=== PATIENT | male | born 1965 | race Caucasian/White ===

== ENCOUNTER 2020-12-04 20:03 | Emergency (ER) | payer OTHER, MEDICARE ==
[~2020-12-04] VITALS: Ht 175.3 cm; Wt 131.8 kg
[2020-12-04 21:04] LABS: BASOPHILS # (AUTO) 0.1 X10'3 (0-0.2); BASOPHILS % (AUTO) 0.6 % (0-1); EOSINOPHILS # (AUTO) 0.6 X10'3 (0-0.9); EOSINOPHILS % (AUTO) 4.6 % (0-6); HEMATOCRIT 35.7 % (42.0-52.0); HEMOGLOBIN 11.5 g/dl (14.0-17.9); LYMPHOCYTES # (AUTO) 1.5 X10'3 (1.1-4.8); LYMPHOCYTES % (AUTO) 11.7 % (21-51); MEAN CORPUSCULAR HEMOGLOBIN 26.5 PG (27.0-31.0); MEAN CORPUSCULAR HGB CONC 32.2 g/dL (33.0-36.5); MEAN CORPUSCULAR VOLUME 82.2 FL (78-98); MEAN PLATELET VOLUME 8.1 FL (7.4-10.4); NEUTROPHILS # (AUTO) 9.8 X10'3 (1.8-7.7); NEUTROPHILS % (AUTO) 75.1 % (42-75); PLATELET COUNT 529 X10'3 (140-440); RED BLOOD COUNT 4.34 X10'6 (4.70-6.10); RED CELL DISTRIBUTION WIDTH 18.4 % (11.5-14.5); WHITE BLOOD COUNT 13.1 X10'3 (4.5-11.0)
[2020-12-04 21:13] LABS: D-DIMER 1.96 MG/L FEU (0-0.50)
[2020-12-04 21:20] LABS: ALANINE AMINOTRANSFERASE 45 U/L (12-78); ALBUMIN 3.2 G/DL (3.4-5.0); ALBUMIN/GLOBULIN RATIO 0.5 (1.1-1.5); ALKALINE PHOSPHATASE 139 IU/L (46-116); ANION GAP 10 (8-16); ASPARTATE AMINO TRANSFERASE 36 U/L (10-37); BILIRUBIN,TOTAL 0.4 MG/DL (0.1-1.0); BLOOD UREA NITROGEN 30 MG/DL (7-18); BUN/CREATININE RATIO 23.4 (5.4-32.0); CALCIUM 9.3 MG/DL (8.5-10.1); CHLORIDE 98 MMOL/L (99-107); CREATININE 1.28 MG/DL (0.60-1.10); GLUCOSE 137 MG/DL (70-104); POTASSIUM 4.5 MMOL/L (3.5-5.1); SODIUM 140 MMOL/L (135-145); TOTAL CARBON DIOXIDE 31.7 MMOL/L (24-32); TOTAL PROTEIN 9.4 G/DL (6.4-8.2); eGFR 58 ML/MIN
[2020-12-05 00:30] VITALS: BP 157/102
== END 2020-12-05 00:33 | disposition home or self-care (01) ==
LOC: ER 20:04
DX: R06.02 Shortness of breath (principal); M10.9 Gout, unspecified; Z90.49 Acquired absence of other specified parts of digestive tract; Z79.82 Long term (current) use of aspirin
CPT/HCPCS: 36415; 71045; 71275; 80053; 83880; 84145; 84484; 85025; 85379; 93005; 99285

== ENCOUNTER 2020-12-11 23:32 | Emergency (ER) | payer OTHER, MEDICARE ==
[~2020-12-11] VITALS: Ht 175.3 cm; Wt 131.8 kg
[2020-12-11 23:37] VITALS: BP 150/91
[2020-12-12 02:12] LABS: CLARITY,URINE CLEAR (Clear); COLOR,URINE YELLOW (Yellow); GLUCOSE, URINE NEGATIVE (Neg); KETONES,URINE NEGATIVE (Neg); LEUKOCYTE ESTERASE ,URINE NEGATIVE (Neg); NITRITES, URINE NEGATIVE (Neg); OCCULT BLOOD,URINE NEGATIVE (Neg); PROTEIN,URINE 100 mg/dl (Neg); UROBILINOGEN,URINE 0.2 E.U/dL (0.2-1.0)
[2020-12-12 02:25] LABS: UA COLLECTION TYPE CLN CATCH MIDSTREAM
[2020-12-12 02:26] LABS: BACTERIA,URINE FEW /HPF (Neg); HYALINE CASTS 0-3 /LPF (NEGATIVE); MUCUS STRANDS FEW /LPF (Neg); RBC,URINE NONE SEEN /HPF (0-2); SQUAMOUS EPITHELIAL CELL,UR FEW /LPF (FEW); WBC,URINE 0-4 /HPF (0-4)
== END 2020-12-12 02:54 | disposition left against medical advice (07) ==
LOC: ER 23:33
DX: R50.9 Fever, unspecified (principal); Z53.21 Procedure and treatment not carried out due to patient leaving prior to being seen by health care provider
CPT/HCPCS: 81001

== ENCOUNTER 2024-12-07 19:13 | Inpatient (IN) | payer OTHER, BC ==
[~2024-12-07] VITALS: Ht 175.3 cm; Wt 145.4 kg
[2024-12-07 19:34] LABS: MEAN PLATELET VOLUME 7.6 FL (7.4-10.4); RED CELL DISTRIBUTION WIDTH 16.3 % (11.5-14.5)
[2024-12-07 20:16] LABS: CREATININE 0.94 MG/DL (0.60-1.10); TOTAL CARBON DIOXIDE 29.4 MMOL/L (24-32); eGFR 82 ML/MIN
[2024-12-07 20:22] LABS: PRO BRAIN NATRIURETIC PEPTIDE 67 PG/ML (0-125)
--- NOTE | 2024-12-07 20:47 | RADIOLOGY REPORT ---
EXAM: DI CHEST,SINGLE VIEW CLINICAL HISTORY: CP TECHNIQUE: Single PA view of the chest WID: COMPARISON: CHEST,SINGLE VIEW on DOS: 12/04/20 FINDINGS: Lines and tubes: Right IJ central venous catheter with the tip projecting over the low SVC. Chest: The heart size and pulmonary vasculature is within normal limits. No pleural effusion, pneumothorax, or consolidation. The osseous structures are grossly intact. IMPRESSION: No acute cardiopulmonary abnormality.
[2024-12-07 21:05] LABS: LEUKOCYTE ESTERASE ,URINE NEGATIVE (Neg); NITRITES, URINE NEGATIVE (Neg); OCCULT BLOOD,URINE TRACE-INTACT (Neg)
[2024-12-07 21:09] LABS: UA COLLECTION TYPE NON-SPECIFIED
[2024-12-07 21:11] LABS: MUCUS STRANDS MANY /LPF (Neg); SQUAMOUS EPITHELIAL CELL,UR FEW /LPF (FEW)
--- NOTE | 2024-12-07 21:32 | RADIOLOGY REPORT ---
Exam: DI ABDOMEN,SINGLE VIEW(KUB) Indication: ABD PAIN Comparison: None Technique: 4 radiographic views of the abdomen. Findings: The visualized portions of the lung bases are clear. Moderate gaseous distention of the stomach and segments of bowel predominantly within the left lower quadrant. No definite evidence of obstruction. There is no definite evidence for pneumoperitoneum. No abnormal calcifications noted. Impression: 1. Limited bowel gas pattern within the stomach and segments of bowel within the left lower quadrant. No definite evidence of obstruction.
--- NOTE | 2024-12-07 22:39 | Physician Documentation ---
History of Present Illness Chief Complaint: Abdominal Pain Stated Complaint: "I THINK I HAVE A BOWEL BLOCKAGE" Time Seen by MD: 22:04 Primary Medical Doctor: agatha ([facility]) Source: patient Mode of Arrival: POV, Ambulatory Exam Limitations: no limitations HPI 59-year-old male presents to the ED with a complaint of abdominal pain since noon today. Says there are no alleviating factors to bone pain even when leaned down. Patient has a long history of abdominal surgeries including bowel resection and a colostomy. States he has not been able to eat since this morning. Reports that his pain is in both the upper left and upper right quadrants. Patient thinks he has a bowel blockage of his because his symptoms are similar to with the air blockage at [facility]. Patient states he has stopped passing gas Day of Onset: Dec 07, 2024 Medication Reconciliation Allergies: Coded Allergies: No Known Allergies (Unverified , 12/04/20) Scheduled Allopurinol (Allopurinol), 4 TAB PO DAILY, (Reported) Amlodipine Besylate (Amlodipine Besylate), 1 TAB PO DAILY Amlodipine* (Norvasc*), 4 TAB PO DAILY, (Reported) Clonidine HCl (Clonidine HCl), 1 TAB PO Q8H Gabapentin (Gabapentin), 1 CAP PO DAILY, (Reported) Hydralazine Hcl* (Apresoline*), 25 MG PO TID, (Reported) Labetalol Hcl (Labetalol Hcl), 100 MG PO BID Losartan Potassium (Losartan Potassium), 100 MG PO DAILY Losartan Potassium* (Cozaar*), 4 TAB PO DAILY, (Reported) Scheduled PRN Acetaminophen (Tylenol), 1 TAB PO Q4HPRN PRN for pain or fever, (Reported) Prednisone* (Prednisone*), 4 TAB PO PRN PRN for gout, (Reported) Discontinued Medications Clonidine HCl (Clonidine HCl), 1 TAB PO BID, (Reported) Past Medical History Past Medical History: *GI/HEPATOBILIARY*, Bowel Obstruction, Hernia Past Surgical History: noncontributory Smoking Status: Unknown if ever smoked Alcohol Use: None Drug Use: none Lives In: Home Review of Systems All Other Systems at this time: Reviewed and Negative ROS As stated above in the HPI, otherwise all systems are reviewed and negative. Physical Exam Vital Signs: Temperature: 98.6, Source: Oral, Heart Rate: 83, Respiratory Rate: 16, BP: 177/86, Pulse Oximetry: 97 Oxygen Flow Rate: 0 Physical Exam General: Alert, no apparent distress Respiratory: Lungs clear, no respiratory distress. Cardiovascular: Regular rate and rhythm, no murmurs. Gastrointestinal: Soft, tender to light palpation upper quadrants Neurologic: Oriented x4. Skin: large surgical scars lower abdomen Progress Progress Note [phone]: Paged hospitalist [phone]: Case discussed with hospitalist who agrees to evaluate patient for admission. Results/Orders Reviewed/noted all lab results: Yes Results/Orders Orders - DELPHINE ABRAHAM [employer] Ct Abdomen Pelvis (12/07/24 22:31) Vital Signs 12/07/24 12/07/24 12/07/24 19:15 20:21 20:40 Temp 98.6 98.6 Pulse 81 83 Resp 16 16 16 B/P (MAP) 208/111 177/86 (116) Pulse Ox 98 97 O2 Flow Rate 0 0 Laboratory Tests Test 12/07/24 19:25 12/07/24 20:51 12/07/24 21:16 White Blood Count 9.2 Red Blood Count 5.36 Hemoglobin 14.2 Hematocrit 42.9 Mean Corpuscular Volume 80.0 Mean Corpuscular Hemoglobin 26.5 L Mean Corpuscular Hemoglobin Concent 33.1 Red Cell Distribution Width 16.3 H Platelet Count 274 Mean Platelet Volume 7.6 Neutrophils (%) (Auto) 67.2 Lymphocytes (%) (Auto) 18.2 L Monocytes (%) (Auto) 5.6 Eosinophils (%) (Auto) 8.1 H Basophils (%) (Auto) 0.9 Neutrophils # (Auto) 6.2 Lymphocytes # (Auto) 1.7 Monocytes # (Auto) 0.5 Eosinophils # (Auto) 0.7 Basophils # (Auto) 0.1 CBC Comment Sodium Level 138 Potassium Level 3.9 Chloride Level 102 Carbon Dioxide Level 29.4 Anion Gap 7 L Blood Urea Nitrogen 19 H Creatinine 0.94 Estimated GFR/1.73 m2 82 BUN/Creatinine Ratio 20.2 H Glucose Level 126 H Calcium Level 8.7 Total Bilirubin 0.9 Aspartate Amino Transf (AST/SGOT) 134 H Alanine Aminotransferase (ALT/SGPT) 73 Alkaline Phosphatase 141 H Troponin I High Sensitivity 10 11 Pro-B-Type Natriuretic Peptide 67 Total Protein 7.7 Albumin 3.4 Globulin 4.3 Albumin/Globulin Ratio 0.8 L Lipase 45 Chemistry Comments Urine Specimen Description Non-specified Urine Color Naomi Urine Clarity Clear Urine pH 6.0 Urine Specific Quincy >=1.030 Urine Protein >=300 H Urine Glucose (UA) Negative Urine Ketones Negative Urine Occult Blood Trace-intact Urine Nitrite Negative Urine Bilirubin Small Urine Urobilinogen 1.0 Urine Leukocyte Esterase Negative Urine RBC 0-2 Urine WBC 0-4 Urine Squamous Epithelial Cells Few Urine Bacteria None seen Urine Mucus Many Urine Culture Indicated Not ind Volume Urine Centrifuged 10 ml Urine Comment Troponin I High Sens Percent Delta 10 Troponin I Hi Sens Absolute Change 1 Re-Evaluation Re-Evaluation : Re-Evaluation: Improved Progress Patient was seen and examined. Patient was initially seen by another provider who is stabilize the patient patient was ready for admission. Patient was then presented to the hospitalist service who kindly agreed to admit the patient for further workup and care. EKG/XRAY/CT/US/VASC/MRI Chest X-Ray : Interpreted By: radiologist Additional Comments [address] [address] DIAGNOSTIC RADIOLOGY Patient: LUIS CARLOS DIEGO Medical Record: [id number] [facility] : 1965, Age: 59 Sex: Male Location: ER Patient Status: [facility] ER Service Date/Time: 12/07/241933 Ordering Physician: SARAH HOLLIS MD Exam: CHEST,SINGLE VIEW EXAM: DI CHEST,SINGLE VIEW CLINICAL HISTORY: CP TECHNIQUE: Single PA view of the chest WID: COMPARISON: CHEST,SINGLE VIEW on DOS: 12/04/20 FINDINGS: Lines and tubes: Right IJ central venous catheter with the tip projecting over the low SVC. Chest: The heart size and pulmonary vasculature is within normal limits. No pleural effusion, pneumothorax, or consolidation. The osseous structures are grossly intact. IMPRESSION: No acute cardiopulmonary abnormality. Electronically Signed by:KRISS HAMMER MD Date & Time: 12/07/242044 Dictated by: KRISS HAMMER MD Dictation date and time: 12/07/242044 Primary Care Provider: NO PRIMARY CARE PROVIDER cc: SARAH HOLLIS MD ~ Abdominal X-Ray : Interpreted By: radiologist Additional Comment [address] [address] DIAGNOSTIC RADIOLOGY Patient: LUIS CARLOS DIEGO Medical Record: [id number] [facility] : 1965, Age: 59 Sex: Male Location: ER Patient Status: [facility] ER Service Date/Time: 12/07/242033 Ordering Physician: SARAH HOLLIS MD Exam: ABDOMEN,SINGLE VIEW(KUB) Exam: DI ABDOMEN,SINGLE VIEW(KUB) Indication: ABD PAIN Comparison: None Technique: 4 radiographic views of the abdomen. Findings: The visualized portions of the lung bases are clear. Moderate gaseous distention of the stomach and segments of bowel predominantly within the left lower quadrant. No definite evidence of obstruction. There is no definite evidence for pneumoperitoneum. No abnormal calcifications noted. Impression: 1. Limited bowel gas pattern within the stomach and segments of bowel within the left lower quadrant. No definite evidence of obstruction. Electronically Signed by:ARCADIO CALDERON MD Date & Time: 12/07/242129 Dictated by: ARCADIO CALDERON MD Dictation date and time: 12/07/242027 Primary Care Provider: NO PRIMARY CARE PROVIDER cc: SARAH HOLLIS MD ~ CT : Interpreted By: radiologist CT: abdomen/pelvis With Contrast?: No Impression [address] [address] CAT SCAN Patient: LUIS CARLOS DIEGO Medical Record: [id number] [facility] : 1965, Age: 59 Sex: Male Location: ER Patient Status: [facility] ER Service Date/Time: 12/07/242308 Ordering Physician: DELPHINE ABRAHAM [employer] Exam: CT ABDOMEN PELVIS Exam: CT CT ABDOMEN PELVIS History: ULQ and URQ pain Comparison Study: None TECHNIQUE: Multidetector CT of the abdomen and pelvis was performed from lung bases to pubic symphysis. Imaging was performed without IV contrast. Axial, coronal, and sagittal multiplanar reformats were obtained from the axial data set by the technologist. RADIATION DOSE: CTDI vol 34.78 mGy. DLP 2291.12 mGy.cm Findings: Limited evaluation of the solid organs in the absence of IV contrast. Liver: Unremarkable. Spleen: Small splenule. Pancreas: Unremarkable. Gallbladder: The gallbladder is distended. No biliary ductal dilatation. Adrenals: Unremarkable Kidneys: Left renal cyst. No hydronephrosis. Pelvic Viscera: Unremarkable. Vasculature: Mild atherosclerotic aortoiliac calcifications. Retroperitoneum: Unremarkable. Bowel: Multiple ventral abdominal wall hernias containing bowel without evidence of obstruction. Musculoskeletal: Unremarkable. Soft tissues: Unremarkable Lungs: Bibasilar atelectasis/scarring. Impression: 1. Distended appearance of the gallbladder. Right upper quadrant ultrasound may be beneficial in further evaluation as clinically indicated. 2. Incidental findings as detailed. Electronically Signed by:JONN VENTURA MD Date & Time: 12/07/242354 Dictated by: JONN VENTURA MD Dictation date and time: 12/07/242354 Primary Care Provider: NO PRIMARY CARE PROVIDER cc: JARAD,DELPHINE H [employer] ~ Medical Decision Making Differential Dx:Considerations: Include: AAA, Angina/LA, Aortic dissection, Appendicitis, Bowel obstruction, Cholangitis, Cholelithasis, Constipation, Diverticular disease, Esophageal rupture, Esophagitis, Gastritis/PUD, Gastroenteritis, GI hemorrhage, Hernia, Hepatitis, Inflammatory BD, Ischemic bowel, Pancreatitis, Porphyria, Testicular torsion, Trauma, intraabdominal, Urinary obstruction, Urinary tract infection, Urolithiasis, Other Departure Time of Disposition: 02:45 Disposition: 09 ADMITTED INPATIENT Admitted to Inpatient Unit: yes, to hospitalist Admission Level of Care: Med/Surg with Tele Impression: Primary Impression: Intractable abdominal pain Condition: Guarded Referrals: NO PRIMARY CARE PROVIDER (PCP) Prescriptions Losartan Potassium (Losartan Potassium) 50 Mg Tablet 100 MG PO DAILY for 30 Days, #60 TAB Prov: KEVIN LOWE, [facility] 12/10/24 Amlodipine Besylate (Amlodipine Besylate) 10 Mg Tablet 1 TAB PO DAILY for 30 Days, #30 TAB 0 Refills Prov: KEVIN LOWE RES 12/10/24 Clonidine HCl (Clonidine HCl) 0.2 Mg Tablet 1 TAB PO Q8H for 30 Days, #90 TAB 0 Refills Prov: KEVIN LOWE, [facility] 12/10/24 Labetalol Hcl (Labetalol Hcl) 100 Mg Tablet 100 MG PO BID for 30 Days, #60 TAB Prov: KEVIN LOWE, [facility] 12/10/24 Signature Scribe Signature: Scribed for Sarah Hollis MD by Alaina Bailey 12/08/24 02:46 Attestation: Scribed for Sarah Hollis MD by Dlephine Kebede NP . 12/08/24 14:09 DELPHINE ABRAHAM NP Dec 07, 2024 22:39 SARAH HOLLIS MD Dec 08, 2024 02:46
--- NOTE | 2024-12-07 23:58 | RADIOLOGY REPORT ---
Exam: CT CT ABDOMEN PELVIS History: ULQ and URQ pain Comparison Study: None TECHNIQUE: Multidetector CT of the abdomen and pelvis was performed from lung bases to pubic symphysi s. Imaging was performed without IV contrast. Axial, coronal, and sagittal multiplanar reformats were obtained from the axial data set by the technologist. RADIATION DOSE: CTDI vol 34.78 mGy. DLP 2291.12 mGy.cm Findings: Limited evaluation of the solid organs in the absence of IV contrast. Liver: Unremarkable. Spleen: Small splenule. Pancreas: Unremarkable. Gallbladder: The gallbladder is distended. No biliary ductal dilatation. Adrenals: Unremarkable Kidneys: Left renal cyst. No hydronephrosis. Pelvic Viscera: Unremarkable. Vasculature: Mild atherosclerotic aortoiliac calcifications. Retroperitoneum: Unremarkable. Bowel: Multiple ventral abdominal wall hernias containing bowel without evidence of obstruction. Musculoskeletal: Unremarkable. Soft tissues: Unremarkable Lungs: Bibasilar atelectasis/scarring. Impression: 1. Distended appearance of the gallbladder. Right upper quadrant ultrasound may be beneficial in fur ther evaluation as clinically indicated. 2. Incidental findings as detailed.
[2024-12-08] VITALS (8 sets, daily range): BP systolic 162–199; BP diastolic 80–109; PULSE 72–82; RESP 16–22; TEMP 96.9–98.4; O2SAT 92–98
[2024-12-08] MEDS ORDERED: AMLO2.5T2 PO (01:20)
[2024-12-08] MEDS ORDERED: HYDR25TA90 PO (01:21)
[2024-12-08] MEDS ORDERED: PRED5TAB PO (01:30)
[2024-12-08] MEDS ORDERED: ALLO100T15 PO (01:30)
[2024-12-08] MEDS ORDERED: GABA-530 PO (01:30)
[2024-12-08] MEDS ORDERED: LOSA-415 PO (01:30)
[2024-12-08] MEDS ORDERED: CLON0.1T2 PO (01:32)
[2024-12-08] MEDS: oxyCODONE SR 10mg (sust. release) tab PO ONE (02:35)
[2024-12-08] MEDS: normal saline 1000ML IV soln IVB ONE (02:44)
[2024-12-08] MEDS ORDERED: ondansetron/PF 4mg/2ml inj IV PRN (03:25)
[2024-12-08] MEDS ORDERED: docusate sod 100mg capsule PO PRN (03:25)
[2024-12-08] MEDS ORDERED: magnesium hydroxide 30ml (MOM) UD suspension PO PRN (03:25)
[2024-12-08] MEDS ORDERED: magnesium sulf-water 2g/50mL 50 ML IV PRN (03:25)
[2024-12-08] MEDS ORDERED: mag hydrox/Alum hydrox/simeth 30ml oral suspension PO PRN (03:25)
[2024-12-08] MEDS ORDERED: potassium Cl 20 mEq SR tablet PO PRN ×2 (03:25)
[2024-12-08] MEDS ORDERED: magnesium sulf-water 4G/100mL 100 ML IV PRN (03:25)
[2024-12-08] MEDS ORDERED: magnesium Cl slow-release 64mg tablet PO PRN (03:25)
[2024-12-08] MEDS ORDERED: potassium Cl 40MEQ/1/2NS 520ml 520 ML IV PRN (03:25)
--- NOTE | 2024-12-08 03:43 | HISTORY AND PHYSICAL-Residence ---
History & Physical Providers to CC Resident Creating Document: JAMES LEMON, RES ~ History of Present Illness Primary Medical Doctor: agatha ([facility]) Reason for Admit\Complaint: Abd pain History of Present Illness A 59 years old male with a past medical history of multiple abdominal surgeries for colectomy and reversed colostomy done by Dr. Simpson, hx of ventriculoperitoneal shunt, Class 4 obesity with EDMUNDO on CPAP, HTN presented to the ER for having abd pain across the belly associated with no BM and flatus pass since yesterday morning. He stated that he was having sharp stabbing pain across his belly button persistently since yesterday morning. It was associated with no flatus pass, bowel movement for which he usually has 2-3 times per day, and nausea but not vomiting. So, he stopped eating since yesterday 7 am but could manage to pass down the liquid. He denied any shifting and radiating pain. He had the similar pain last 2 years ago when he had a bowel obstruction. He also noticed for the low grade fever at home but denied for chills and rigor. He had multiple surgeries for his diverticulitis and bleeding internally which was corrected with sigmoid colectomy and reversed colostomy by Dr Simpson. He denied any unintentionally dramatic weight loss in the short period. In ER, his CT abd did not show any signs of Bowel obstruction but the gall bladder was distended. The concern for admission was to explore more for the gall bladder pathology with mildly elevated Lactic acid along with the abd pain. Allergies: Coded Allergies: No Known Allergies (Unverified , 12/04/20) Home Medications Home Medications Active Reported Clonidine HCl 0.1 Mg Tablet 1 Tab PO BID 30 Days Gabapentin 100 Mg Capsule 1 Cap PO DAILY 30 Days Allopurinol 100 Mg Tablet 4 Tab PO DAILY Prednisone* (Prednisone) 5 Mg Tablet 4 Tab PO PRN PRN 30 Days Cozaar* (Losartan Potassium) 25 Mg Tablet 4 Tab PO DAILY 30 Days Apresoline* (Hydralazine HCl) 25 Mg Tablet 25 Mg PO TID Norvasc* (Amlodipine Besylate) 2.5 Mg Tablet 4 Tab PO DAILY 30 Days Past Medical History Past Medical History -hx of ventriculoperitoneal shunt -Class 4 obesity with EDMUNDO on CPAP -HTN Past Surgical History Surgical History Comment multiple abdominal surgeries for colectomy and reversed colostomy done by Dr. Simpson Past Social History Social History Comment living with his spouce and fully ambulatory Quit smoking while he was 17 years old, the last time he was drinking alcohol was six years ago, and was a ex heavy drinker Alcohol Use: None Drug Use: None Lives In: Home ROS All Other Systems: Reviewed and Negative ROS ROS were reviewed WNL except for the above mentioned in HPI Exam Vitals: Vital Signs Date Time Temp Pulse Resp B/P (MAP) Pulse Ox O2 Delivery O2 Flow Rate FiO2 12/08/24 02:46 70 16 182/95 (124) 99 12/08/24 02:22 0 12/07/24 20:21 98.6 General: General: Generally obese, Well alert, well oriented, not confused, not agitated, not in acute distress, well cooperated during the physical. HEENT: HEENT: Conjunctive are pink, sclerae clear, no icterus, pupil is equal in both sides, reactive to light, no ear discharge, no pharyngeal erythema or an edema, mouth and lips are moist. Neck: Neck: Supple, no JVD, no lymphadenopathy and thyromegaly. Chest: Lungs:Equal air entry on both lungs, no additional sounds Cardiovascular: Heart: S1-S2 regular sinus rhythm and, regular rate, no gallops, no rubs, no murmurs Abdomen: Abdomen: No visible peristalsis, visible midline surgical scars with two profusely enlarged left lower swelling and right lower swelling over the obese abd, hyperactive Bowel sounds present on auscultation on the right lower but slightly reduced on the left lower compared to the right, soft, nontender, no guarding, no rigidity. No Rodriguez sign positive Extremities: Extremities: No obvious deformities, no pitting edema bilaterally, capillary refill intact, able to wiggle toes both sides, peripheral pulsations are intact on both sides Central Nervous System: [employer]: No focal neurological deficits, no motor and sensory weakness in all 4 extremities, could move all 4 extremities Musculoskeletal: Musculoskeletal: No joint swelling, deformities, inflammations, and no scoliosis and back tenderness Skin: Skin: No active skin lesions and rashes Diagnostic Data Last Recorded Lab Results: 12/07/24192412/07/241924 Advance Care Planning Advanced Care plannin - 30 Minutes Additional Plan A 59 years old male with a past medical history of multiple abdominal surgeries for colectomy and reversed colostomy done by Dr. Simpson, hx of ventriculoperitoneal shunt, Class 4 obesity with EDMUNDO on CPAP, presented to the ER for having abd pain across the belly associated with no BM and flatus pass since yesterday morning. # Acute abdominal pain # Distended Gall bladder # Suspected bowel obstruction - KUB abd xray showed Limited bowel gas pattern within the stomach and segments of bowel within the left lower quadrant. No definite evidence of obstruction. -CT AP w/o IV Contrast showed Gallbladder: The gallbladder is distended. No biliary ductal dilatation. Bowel: Multiple ventral abdominal wall hernias containing bowel without evidence of obstruction. -ordered USG abd and HIDA scan for any hepatobiliary pathology -consult with general surgery for further management in the a.m. -NO NPO and NGT orders since no radiologic evidence of bowel obstruction -serum potassium within normal -control nausea with ondansetron, pain with Tylenol and IV Dilaudid as needed # EDMUNDO on CPAP # Class 4 obesity, BMI 47.4 # HTN # hyperglycemia -continue CPAP daily -weight losing plan outpatient setting -control blood pressure with amlodipine, losartan, clonidine -pending lipid panel, HGB A1c, TSH # Gouty arthritis # chronic pain -continue allopurinol 100 mg daily, prednisone 5 mg four tablets daily as needed for gouty arthritis, cautiously use prednisone in the presence of hypertension -pain control CODE STATUS: DNR DNI, patient confirmed DVT prophylaxis: Sc heparin 5000 units b.i.d. Analgesia/sedation: Tylenol/IV Dilaudid as needed Lines/tubes: PIV Prognosis: Guarded Disposition: Continue medical management, surgical consultation in the a.m., F/up W/ ultrasound abdomen and HIDA scan, continue IV fluid, pain control, rapid lactic acid, PT eval and DC plan. Resident MD attestation: Patient was seen, examined and discussed with attending MD, Dr. Angel LEMON MD Internal Medicine Resident, PGY3 [facility] Date of Service: Dec 08, 2024 Billing Provider: DAVID PATRICK MD,JAMES, RES Dec 08, 2024 03:43 DAVID PATRICK MD Dec 08, 2024 15:42
[2024-12-08] MEDS: ketorolac trometh 15mg/ml vial 15 MG/ML ML IV ONE (03:50)
[2024-12-08] MEDS: ringers solution, lacted 1,000 ML IV SCH (03:51)
[2024-12-08] MEDS: HYDROmorphone inj. 0.5 MG/0.5 ML DISP.SYRIN IV PRN (06:01)
--- NOTE | 2024-12-08 06:30 | ELECTROCARDIOGRAPH REPORT ---
[facility] Test Date: 2024-12-07 Test Time: 19:26:48 Pat Name: LUIS CARLOS DIEGO Department: EMERGENCY ROOM Room: ORTHO 4023 A Gender: M [employer] Operator: : 1965 Requested By: SARAH HOLLIS Order Number: [id number] Reading MD: Dr. Sarah Hollis Measurements Intervals [place] Rate: 80 P: 19 TX: 170 QRS: -9 QRSD: 94 T: 50 QT: 365 QTc: 421 Interpretive Statements Sinus rhythm Baseline wander in lead(s) V2 Electronically Signed On 12-08-2024 18:33:[address] Sarah Hollis Please click the below link to view image of tracing.
[2024-12-08 06:40] LABS: APTT 30 SECONDS (22-32); INR 1.1 INR
[2024-12-08 07:01] LABS: CHOL/HDL RATIO 3.1 (0.00-4.99); LDL CHOLESTEROL 99 MG/DL (50-100); PRO BRAIN NATRIURETIC PEPTIDE 98 PG/ML (0-125)
[2024-12-08 07:27] LABS: MEAN PLATELET VOLUME 8.3 FL (7.4-10.4); RED CELL DISTRIBUTION WIDTH 15.8 % (11.5-14.5)
[2024-12-08 07:32] LABS: CREATININE 1.06 MG/DL (0.60-1.10); TOTAL CARBON DIOXIDE 22.5 MMOL/L (24-32); eCRCL 74 ML/MIN; eGFR 71 ML/MIN
[2024-12-08] MEDS ORDERED: ALLOPURINOL PO SCH (08:00)
[2024-12-08] MEDS: K and/or MAG REPLACEMENT MC SCH (08:00)
[2024-12-08] MEDS: heparin, porcine 5000 units/ml vial SQ SCH (09:08)
[2024-12-08] MEDS: hydrALAZINE 20mg/ml inj. IV PRN (10:24)
--- NOTE | 2024-12-08 11:06 | RADIOLOGY REPORT ---
INDICATION: Distended GB with the Acute abd, slightly elevated AST TECHNIQUE: Multiple real-time sonographic images of the abdomen were obtained. COMPARISON: None FINDINGS: The liver is homogenous in echogenicity. No intrahepatic biliary ductal dilatation is not ed. The gallbladder wall measures 0.2 cm and is unremarkable. Gallbladder sludge. The common duct measur es 0.7 cm and is unremarkable. No pericholecystic fluid is noted. The right kidney measures 11cm. No hydronephrosis. The pancreas is not well visualized due to obscuration from bowel gas. The visualized portions of the IVC and aorta are grossly unremarkable. IMPRESSION: Gallbladder sludge.
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
[2024-12-08] MEDS: SINCALIDE IV ONE (15:43)
[2024-12-08] MEDS: NORMAL SALINE IV ONE (15:43)
--- NOTE | 2024-12-08 17:00 | RADIOLOGY REPORT ---
HEPATOBILIARY SCINTIGRAPHY (HIDA SCAN) WITH EJECTION FRACTION REASON FOR EXAM: Distended GB with no CBD dilation. RHC pain elevated lactic acid. History of colecto my and PART TIME RECEPTIONIST shunt. COMPARISON: None TECHNIQUE: 5.9 mCi of technetium 99m Choletec were injected intravenously and hepatobiliary scan was performed. This was followed by slow injection of 2.9 mcg CCK. Dynamic cine loop and static images we re reviewed on a workstation. FINDINGS: There is homogenous uptake of radiotracer within the liver on the immediate flow images. There is visualization of the biliary tree within 15 minutes of the study and there is progressive pa ssage of radiotracer into the small bowel as the study progresses. There is no radiotracer extravasa tion. The gallbladder is visualized within 20 minutes of the study. The patient experienced mild abdominal cramping with CCK infusion. Gallbladder ejection fraction is estimated at 3%, severely decreased. IMPRESSION: Severely decreased gallbladder ejection fraction. The most common etiologies in the differential diag nosis include chronic acalculous cholecystitis and biliary dyskinesia.
--- NOTE | 2024-12-08 22:58 | ELECTROCARDIOGRAPH REPORT ---
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 DEANGELO Clarke Measurements Intervals [place] Rate: 80 P: 31 MT: 187 QRS: 22 QRSD: 103 T: 54 QT: 378 QTc: 436 Interpretive Statements Sinus rhythm Electronically Signed On 12-09-2024 19:16:[address] DEANGELO Clarke Please click the below link to view image of tracing.
[2024-12-09] VITALS (11 sets, daily range): BP systolic 123–199; BP diastolic 63–101; PULSE 64–78; RESP 16–19; TEMP 97.9–98.7; O2SAT 94–97
[2024-12-09 04:58] LABS: MEAN PLATELET VOLUME 7.8 FL (7.4-10.4); RED CELL DISTRIBUTION WIDTH 15.9 % (11.5-14.5)
[2024-12-09 05:17] LABS: CREATININE 0.72 MG/DL (0.60-1.10); TOTAL CARBON DIOXIDE 26.9 MMOL/L (24-32); eCRCL 109 ML/MIN; eGFR > 90 ML/MIN
--- NOTE | 2024-12-09 07:49 | ELECTROCARDIOGRAPH REPORT ---
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 DEANGELO Clarke Measurements Intervals [place] Rate: 82 P: 11 [place]: 198 QRS: 10 QRSD: 99 T: 47 QT: 387 QTc: 452 Interpretive Statements Sinus rhythm Ventricular premature complex Inferior infarct, old Electronically Signed On 12-09-2024 19:16:[address] DEANGELO Clarke Please click the below link to view image of tracing.
--- NOTE | 2024-12-09 08:16 | RADIOLOGY REPORT ---
CHEST RADIOGRAPH Indication: CHEST PAIN/SOB Technique: Single frontal view of the chest was obtained Comparison: DI CHEST,SINGLE VIEW on DOS: 12/07/24, CTA CHEST on DOS: 12/04/20, CHEST,SINGLE VIEW on DOS : 12/04/20 FINDINGS: Lines and Tubes: Right CVC tip in SVC. Lungs: No focal consolidation. Pleura: No effusion. No pneumothorax. Cardiomediastinal contours: Unremarkable Bones: No acute osseous abnormality. IMPRESSION: No acute cardiopulmonary disease.
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
--- NOTE | 2024-12-09 20:12 | PROGRESS NOTE ---
Progress Note Dictate Providers to CC ~ Progress Note: I was asked to see the patient for a massive midline hernia and abdominal pain I reviewed the CT scan and spoke with the patient He is not showing any clinical or radiographic evidence of obstruction or compromised bowel Laboratory studies are all within normal limits Recommendations: -with no strangulation or obstruction, advancing diet and focusing on pain management and supportive care is indicated. Consider temporary method such as oral analgesics such as acetaminophen or NSAIDs, localized packs and avoiding activities that exacerbate pain. -patient states he has a surgeon that he has spoken to at [facility] who is willing to fix his hernia and I believe this is the best option forward In the interim, optimizing comorbidities including obesity would prove beneficial Patient has loss of domain and a complex abdominal wall. These complex hernia repairs may incorporate preoperative progressive pneumo peritoneum, botulinum toxin injections, or staged component separation to expand the abdominal domain before surgery. These repairs should be undertaken electively by teams familiar with modern, multi technique approaches such as component separation in complicated abdominal cases. Emergency repair outside specialist environment is discouraged due to the high morbidity and risk of compartment syndrome. Nonsurgical options including watchful waiting are reasonable if there was no acute risk and symptoms are manageable. I would treat the patient symptomatically, encourage weight loss and have him follow up with his surgeon at [facility] in the not too distant future. Antibiotic Ordered?: N/A Objective Vitals Vital Signs Date Time Temp Pulse Resp B/P (MAP) Pulse Ox O2 Delivery O2 Flow Rate FiO2 12/09/24 18:01 16 12/09/24 16:00 123/74 (90) 12/09/24 12:30 73 12/09/24 10:00 98.7 97 Room Air 12/09/24 08:00 0.0 Lab Results: 12/09/24 0436 12/09/24 0436 Coagulation Studies Laboratory Tests Test 12/08/24 05:57 Prothrombin Time 10.9 SECONDS (9.0-12.0) INR International Normalized Ratio 1.1 INR Activated Partial Thromboplast Time 30 SECONDS (22-32) Coagulation Comments JOSE EASON MD Dec 09, 2024 20:12
[2024-12-10 06:00] VITALS: BP 191/98; PULSE 65; RESP 18; TEMP 97.9; O2SAT 96
[2024-12-10 06:23] LABS: MEAN PLATELET VOLUME 8.3 FL (7.4-10.4); RED CELL DISTRIBUTION WIDTH 15.8 % (11.5-14.5)
[2024-12-10 06:26] LABS: CREATININE 0.81 MG/DL (0.60-1.10); TOTAL CARBON DIOXIDE 28.5 MMOL/L (24-32); eCRCL 97 ML/MIN; eGFR > 90 ML/MIN
[2024-12-10 09:47] VITALS: BP 143/80; PULSE 65
[2024-12-10 10:00] VITALS: BP 157/85; PULSE 67; RESP 20; TEMP 97.5; O2SAT 96
[2024-12-10] MEDS ORDERED: CLON0.2T PO (12:20)
[2024-12-10] MEDS ORDERED: ACET-1008 PO (12:20)
[2024-12-10] MEDS ORDERED: LABE100T8 PO (12:20)
[2024-12-10] MEDS ORDERED: LOSA50TA64 PO (12:20)
[2024-12-10] MEDS ORDERED: AMLO10TA59 PO (12:20)
[2024-12-10 13:30] VITALS: BP_SYST 143; PULSE 67
--- NOTE | 2024-12-10 19:44 | DISCHARGE SUMMARY-Residence ---
Discharge Summary Providers to CC Resident Creating Document: KEVIN LOWE, RES ~ Discharge Summary Admission Diagnosis: RIGHT UPPER QUADRANT ABD PAIN Hospital Course DATE OF ADMISSION: DATE OF DISCHARGE: Discharge Diagnosis\Comment: Small-bowel obstruction ruled out Condition on DC: Stable New Medications: Clonidine HCl (Clonidine HCl) 0.2 Mg Tablet 1 TAB PO Q8H for 30 Days, #90 TAB 0 Refills Losartan Potassium (Losartan Potassium) 50 Mg Tablet 100 MG PO DAILY for 30 Days, #60 TAB Amlodipine Besylate (Amlodipine Besylate) 10 Mg Tablet 1 TAB PO DAILY for 30 Days, #30 TAB 0 Refills Labetalol Hcl (Labetalol Hcl) 100 Mg Tablet 100 MG PO BID for 30 Days, #60 TAB Continued Medications: Allopurinol (Allopurinol) 100 Mg Tablet 4 TAB PO DAILY Gabapentin (Gabapentin) 100 Mg Capsule 1 CAP PO DAILY for 30 Days, #90 CAP 0 Refills Hydralazine Hcl* (Apresoline*) 25 Mg Tablet 25 MG PO TID, TAB Prednisone* (Prednisone*) 5 Mg Tablet 4 TAB PO PRN PRN for gout for 30 Days, #30 TAB 0 Refills Discontinued Medications: Clonidine HCl (Clonidine HCl) 0.1 Mg Tablet 1 TAB PO BID for 30 Days, #30 TAB 0 Refills Discharge Summary: HPI at the time of admission per admitting physician A 59 years old male with a past medical history of multiple abdominal surgeries for colectomy and reversed colostomy done by Dr. Simpson, hx of ventriculoperitoneal shunt, Class 4 obesity with EDMUNDO on CPAP, HTN presented to the ER for having abd pain across the belly associated with no BM and flatus pass since yesterday morning. He stated that he was having sharp stabbing pain across his belly button persistently since yesterday morning. It was associated with no flatus pass, bowel movement for which he usually has 2-3 times per day, and nausea but not vomiting. So, he stopped eating since yesterday 7 am but could manage to pass down the liquid. He denied any shifting and radiating pain. He had the similar pain last 2 years ago when he had a bowel obstruction. He also noticed for the low grade fever at home but denied for chills and rigor. He had multiple surgeries for his diverticulitis and bleeding internally which was corrected with sigmoid colectomy and reversed colostomy by Dr Simpson. He denied any unintentionally dramatic weight loss in the short period. In ER, his CT abd did not show any signs of Bowel obstruction but the gall bladder was distended. The concern for admission was to explore more for the gall bladder pathology with mildly elevated Lactic acid along with the abd pain Course in the hospital Admitted for intractable abdominal pain and for small-bowel obstruction evaluation. Imaging studies with HIDA scan showed chronic acalculous cholecystitis and CT imaging showed multiple abdominal ventral wall hernia without obstruction. We Consulted Dr. Elias and he thought that abdominal pain is not due to obstruction or any acute abdomen but secondary to previous abdominal surgeries distorting abdominal wall structure and he thinks that patient needs to get the abdominal wall reconstruction surgery, possibly at [facility] with Dr. Christopher Travis. Dr. Elias informed us through telephonic conversation that nobody in [facility] can do the surgery on him considering his previous multiple, 6 abdominal surgeries and he needs to be transferred/referred to [facility] in couple of weeks. He do not think the pain abdomen need to be addressed aggressively because it is chronic abdominal pain. Imaging ruled out small- bowel obstruction. Ultrasound showed GB sludge and CT abdomen pelvis, noncontrast showed GB distention and we evaluated with HIDA scan which showed chronic acalculous cholecystitis. He thinks that he needs abdominal wall surgery but it would take long time more than 8 hours for this kind of complicated surgery and he do not think nobody in the town can operate this kind of surgery. Received ondansetron, Dilaudid, pain pantoprazole. It was very difficult to control his blood pressures and we increased the dose of clonidine to 0.2 mg p.o. t.i.d. and we added labetalol 100 mg p.o. t.i.d. 2 amlodipine 10 mg, losartan 100 mg, hydralazine 25 mg p.o. t.i.d. and patient's blood pressure was controlled and we discharged on these medications. Hypertension, controlled Blood pressure in 160s and trended down to 120s and he is currently on four p.o. medications and On amlodipine 10 mg, losartan 100 mg, hydralazine 25 mg p.o. t.i.d. and on hydralazine 10 mg q.6 H p.r.n. We are monitoring blood pressure with a target of less than 130 We added the 0.2 mg of clonidine p.o. t.i.d. with which the blood pressures went down to 120s we will re-evaluate him tomorrow if the blood pressure going down we may reduce the dose of clonidine We addressed the high blood pressure issues and inform the patient's about his medications and blood pressure through telephone in the afternoon. Gouty arthritis Chronic pain Continuing prednisone 20 mg p.o., allopurinol Class 3 severe Obesity EDMUNDO On CPAP Outpatient follow up at obesity clinic because he may be a candidate for surgical intervention Recommended lifestyle modification LDL is 99, A1c 6.1, TSH is 2.91 Examination at the time of Discharge Vital Signs Date Time Temp Pulse Resp B/P (MAP) Pulse Ox O2 Delivery O2 Flow Rate FiO2 12/10/24 13:30 67 12/10/24 10:00 97.5 20 157/85 (109) 96 Room Air 12/09/24 08:00 0.0 General: Alert, awake, oriented to time place person. Not in acute distress. HEENT: Conjunctive are pink, sclerae clear, no icterus, pupil is equal in both sides, reactive to light, no ear discharge, no pharyngeal erythema or an edema, mouth and lips are moist. Neck: Supple, no JVD, no lymphadenopathy and thyromegaly. Respiratory system::Equal air entry on both lungs, no additional sounds Cardiovascular: S1-S2 regular sinus rhythm and, regular rate, no gallops, no rubs, no murmurs Gastrointestinal: Soft, mild tenderness in right upper quadrant and left upper quadrant and epigastric region, improved from yesterday. Multiple midline scar with a left subchondral scar. Abdomen is asymmetrical with dilated mass over the left of the umbilicus and on the right side of the umbilicus . No guarding/no rigidity/no rebound tenderness. [place] bowel sounds. 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 FOLLOW UP WITH SURGEON AT [facility] FOR ABDOMINAL WALL RECONSTRUCTION SURGERY. CONTINUE AMLODIPINE 10 MG P.O. DAILY, CLONIDINE 0.2 MG P.O. T.I.D., LABETALOL 100 MG P.O. T.I.D. LOSARTAN 100 MG P.O. DAILY, HYDRALAZINE 25 MG P.O. DAILY. READ ADVERSE EFFECTS OF PRESCRIBED MEDICATION. VISIT ER OR CALL 911 IF EMERGENCY Date of Service: Dec 10, 2024 Billing Provider: YVETTE FELDMAN MD, VENKATESH, RES Dec 10, 2024 19:44
== END 2024-12-10 14:58 | disposition home or self-care (01) | DRG 394 ==
LOC: ER 19:14 → ED HOLD 12-08 02:55 → ORTHO 4S 12-08 05:39
PROVIDERS: ADMIT Surgery Surgical Critical Care; ATTEND Family Medicine
PROC: CF141ZZ Planar Nuclear Medicine Imaging of Gallbladder using Technetium 99m (Tc-99m) (ICD-10-PCS; principal; 2024-12-08)
DX: K43.9 Ventral hernia without obstruction or gangrene (principal); Z68.42 Body mass index [BMI] 45.0-49.9, adult; I10 Essential (primary) hypertension; R73.9 Hyperglycemia, unspecified; G47.33 Obstructive sleep apnea (adult) (pediatric); E66.813 Obesity, class 3; M10.9 Gout, unspecified; Z90.49 Acquired absence of other specified parts of digestive tract; Z79.899 Other long term (current) drug therapy
CPT/HCPCS: 36415; 71045; 74018; 74176; 76700; 78227; 80053; 80061; 81001; 82977; 83036; 83605; 83690; 83735; 83880; 84443; 84484; 85025; 85610; 85730; 93005; 94760; 99285; A6258; A6402; A9537; G0378; J0360; J1171; J1644; J1885; J2470; J2805; J7030; J7120